=== PATIENT | male | born 1955 | race Caucasian/White ===

== ENCOUNTER 2019-02-21 11:09 | Emergency (ER) | payer OTHER ==
[2019-02-21] MEDS ORDERED: Meclizine TAB* 12.5 MG PO ONE (11:45)
--- NOTE | 2019-02-21 11:52 | UC ---
Dizzy HPI HPI Summary: 63-year-old male comes in with a chief complaint of dizziness. Patient's over the last month or so is been treated multiple times for ear infections with 3 different antibiotics and he is scheduled to see the ENT Dr. Nath later this month for the recurrent ear infections. Patient continues to have bilateral ear pressure left is worse than the right. This morning when he got up he felt very off balance and dizzy. The symptoms are worse with activity and moving his head. Denies any focal weakness or numbness. Denies any chest pain or shortness of breath or recent chest pain or shortness breath. When he stands up the dizziness is worse but he does not feel like does not pass out. - History Of Current Complaint Chief Complaint: UCGeneralIllness Stated Complaint: DIZZY Time Seen by Provider: 02/21/19 11:27 Pain Intensity: 0 - Allergies/Home Medications Allergies/Adverse Reactions: Allergies Allergy/AdvReac Type Severity Reaction Status Date / Time No Known Allergies Allergy Verified 02/21/19 11:17 Home Medications: Home Medications DOXYcycline CAP(*) [DOXYcycline 100MG CAP(*)] 100 mg PO BID 02/21/19 [History Confirmed 02/21/19] PMH/Surg Hx/FS Hx/Imm Hx Previously Healthy: Yes Cardiovascular History: Other - LBBB - Surgical History Surgical History: Yes Surgery Procedure, Year, and Place: achilles tendon - Family History Known Family History: Positive: Non-Contributory - Social History Alcohol Use: Occasionally Substance Use Type: None Smoking Status (MU): Never Smoked Tobacco Review of Systems All Other Systems Reviewed And Are Negative: Yes Constitutional: Positive: Negative Skin: Positive: Negative Eyes: Positive: Negative ENT: Positive: Ear Ache Respiratory: Positive: Negative Cardiovascular: Positive: Negative Gastrointestinal: Positive: Negative Motor: Positive: Negative Neurovascular: Positive: Negative Musculoskeletal: Positive: Negative Neurological: Positive: Negative Psychological: Positive: Negative Is Patient Immunocompromised?: No Physical Exam Triage Information Reviewed: Yes Appearance: Well-Appearing, No Pain Distress, Well-Nourished Vital Signs: Initial Vital Signs Temp 98 F 02/21/19 11:18 Pulse 58 02/21/19 11:18 Resp 17 02/21/19 11:18 BP 141/68 02/21/19 11:18 Pulse Ox 99 02/21/19 11:18 Vital Signs Reviewed: Yes Eye Exam: Normal Eyes: Positive: Conjunctiva Clear, Other: - PERRLA/EOMI ENT: Positive: Pharynx normal, TM dull - LEFT DEREK Neck: Positive: Supple Respiratory: Positive: Lungs clear, Normal breath sounds, No respiratory distress Cardiovascular: Positive: RRR Musculoskeletal Exam: Normal Musculoskeletal: Positive: Strength Intact, ROM Intact Neurological: Positive: Alert, Muscle Tone Normal, Other: - NORMAL SPEECH. NO VISUAL FIELD DEFICITS. FACE SYMMETRIC. STRENGTH AND ROM FULL UE AND LE. POSITIVE LEFT BEATING NYTAGMUS. NO OTHER NYSTAGMUS. NL FINGER TO NOSE AND HEEL TO PETTIT. Psychological: Positive: Age Appropriate Behavior Skin Exam: Normal Diagnostics - EKG Cardiac Rate: Bradycardia - AT 1117 Cardiac Rhythm: Sinus: Normal - 54BPM, LBBB: New - NO OLD EKG,NO KNOW PRIOR HX LBBB ST Segment: Non-Specific EKG Comparison: No Significant Change - 10/24/16 EKG SINUS BRADYCARDIA 52 BPM LBBB Dizzy Course/Dx - Course Course Of Treatment: Patient Name: ESTEBAN JOHNSON Medical Record#: [id number] Ordering Physician: Tanner Mai MD Acct.#: [id number] : 1955 Age: 63 Sex: M Location: [facility] Exam Date: 02/21/19 1145 ADM Status: PRE ER Order Information: CT BRAIN WO Accession Number: [id number] CPT: 46785 INDICATION: Head injury. COMPARISON: There are no prior studies available for comparison. TECHNIQUE: Contiguous axial sections of the brain were obtained from the skull base to the vertex without contrast. FINDINGS: The ventricles, cisterns and sulci are within normal limits. No significant focal abnormality or mass effect is seen. There is no evidence for hemorrhage. No significant focal osseous abnormality is seen. The visualized portion of the paranasal sinuses and mastoid air cells appear clear. IMPRESSION: NO EVIDENCE FOR ACUTE INTRACRANIAL ABNORMALITY. <Electronically signed by Azam Mckinney MD in OV> 02/21/[address] EKG and orthostatics with the patient. Patient had meclizine 25 mg by mouth in clinic. I do not find any focal neurologic deficit. Finger-nose heel to pettit is normal. Nystagmus is only found left beating horizontal. Patient is not dizzy at rest. Movement of the head provokes the dizziness and not moving improves to dizziness. Patient's EKG is left bundle branch block sinus bradycardia this is consistent with his prior EKG of October 24, 2016 which is also sinus bradycardia left bundle branch block. Orthostatics were essentially normal. I spoke to Dr. Nath's office. Patient has an appointment set up for February 24 2: 15 PM. I encouraged the patient to go to this appointment. I also discussed with him the risk that the dizziness is from stroke. Let them know that if he has dizziness at rest or has any neurologic deficit such as difficulty with speech or vision or weakness or numbness he needs to go the emergency department for further evaluation and care. - Differential Dx/Diagnosis Provider Diagnosis: Vertigo, Chronic serous otitis media, left ear Discharge - Sign-Out/Discharge Documenting (check all that apply): Patient Departure All imaging exams completed and their final reports reviewed: Yes - Discharge Plan Condition: Stable Disposition: HOME Prescriptions: Meclizine HCl [Motion Sickness Relief] 25 mg PO Q6HR PRN #20 tablet PRN Reason: Vertigo Patient Education Materials: Vertigo (ED), Serous Otitis Media (ED) Referrals: Rita Stephen [Primary Care Provider] - Bib Nath MD [Medical Doctor] - Additional Instructions: FOLLOW UP WITH DR NATH, ENT, ON 02/24/19 AT 2:15PM SCHEDULED. GO TO THE EMERGENCY DEPARTMENT IF YOUR CONDITION DOES NOT IMPROVE OR WORSENS; DIZZINESS AT REST, WEAKNESS NUMBNESS, DIFFICULTY WITH VISION OR SPEECH OR ANY QUESTIONS OR CONCERNS. - Billing Disposition and Condition Condition: STABLE Disposition: Home
[2019-02-21 13:28] VITALS: BP 108/66
== END 2019-02-21 13:36 | disposition home or self-care (01) ==
LOC: UCCORT 11:09
DX: R42 Dizziness and giddiness (principal); H65.22 Chronic serous otitis media, left ear; I44.7 Left bundle-branch block, unspecified
CPT/HCPCS: 70450; 93005; 99213; A9270-GY; G0463